=== PATIENT | male | born 1960 | race Caucasian/White ===

== ENCOUNTER 2017-11-11 19:30 | Emergency (ER) | payer SELFPAY ==
[2017-11-11] MEDS ORDERED: Penicillin VK TAB* 250 MG PO ONE (21:16)
--- NOTE | 2017-11-11 21:16 | ED ---
Throat Pain/Nasal Congestion - HPI Summary HPI Summary: Complains of left upper tooth pain and dental abscess 1 week. Patient states he self drained abscess 2 days ago, and swelling and abscess have resolved, but dental pain is increased. Denies fever, sore throat, trouble eating or drinking , N/V, further purulent drainage, gum swelling, ear pain, PETERSON, facial swelling, decreased jaw function or range of motion, SOB. Medical history is none. - History of Current Complaint Chief Complaint: EDDentalPain Time Seen by Provider: 11/11/17 20:58 Hx Obtained From: Patient, Family/Belt Knife Feeder Onset/Duration: Gradual Onset Severity: Moderate - Epiglottits Risk Factors Epiglottis Risk Factors: Negative - Allergies/Home Medications Allergies/Adverse Reactions: Allergies Allergy/AdvReac Type Severity Reaction Status Date / Time Iodine and Iodide Containing Allergy Hives Verified 11/11/17 20:49 Produc shellfish derived Allergy Hives Verified 11/11/17 20:49 Home Medications: Home Medications Gluc Villegas/Chondro Villegas A/Vit C/Mn [Glucosamine Chondroitin] 1 tab PO DAILY 11/11/17 [History Confirmed 11/11/17] PMH/Surg Hx/FS Hx/Imm Hx - Immunization History Date of Tetanus Vaccine: utd Date of Influenza Vaccine: none Infectious Disease History: No Infectious Disease History: Denies: Traveled Outside the [place] in Last 30 Days - Social History Alcohol Use: Rare Substance Use Type: Reports: Marijuana Substance Use Comment - Amount & Last Used: daily Smoking Status (MU): Never Smoked Tobacco Review of Systems Constitutional: Negative Eyes: Negative Positive: Dental Pain Cardiovascular: Negative Respiratory: Negative Gastrointestinal: Negative Genitourinary: Negative Musculoskeletal: Negative Skin: Negative Neurological: Negative Psychological: Normal All Other Systems Reviewed And Are Negative: Yes Physical Exam - Summary Physical Exam Summary: Dental Dayanara, we are left upper molar. Most of tooth missing. No abscess, swelling of gums, purulent drainage., Gums nontender to palpation. Pharynx normal. Uvula midline. No facial swelling. Triage Information Reviewed: Yes Vital Signs On Initial Exam: Initial Vitals Temp Pulse Resp BP Pulse Ox 97.6 F 52 18 108/58 99 11/11/17 19:40 11/11/17 19:40 11/11/17 19:40 11/11/17 19:40 11/11/17 19:40 Vital Signs Reviewed: Yes Appearance: Positive: Well-Appearing Skin: Positive: Warm Head/Face: Positive: Normal Head/Face Inspection Eyes: Positive: Normal ENT: Positive: Normal ENT inspection Dental: Positive: Gross Decay/Caries @. Negative: Percussion Tenderness @, Abscess @, Oropharynx Neck: Positive: Supple Respiratory/Lung Sounds: Positive: Clear to Auscultation Cardiovascular: Positive: Normal Abdomen Description: Positive: Nontender Musculoskeletal: Positive: Normal Neurological: Positive: Normal Psychiatric: Positive: Normal AVPU Assessment: Alert - Dillon Coma Scale Best Eye Response: 4 - Spontaneous Best Motor Response: 6 - Obeys Commands Best Verbal Response: 5 - Oriented Coma Scale Total: 15 Diagnostics - Vital Signs Vital Signs Temp Pulse Resp BP Pulse Ox 11/11/17 19:40 97.6 F 52 18 108/58 99 - Laboratory Lab Statement: Any lab studies that have been ordered have been reviewed, and results considered in the medical decision making process. EENT Course/Dx - Course Course Of Treatment: dental pain with resolved abscess: home with abx, pain med and f/up with dentist - Diagnoses Provider Diagnoses: Pain, dental, Dental caries Discharge - Sign-Out/Discharge Documenting (check all that apply): Discharge/Admit/Transfer - Discharge Plan Condition: Stable Disposition: HOME Prescriptions: Penicillin VK 500 MG TAB(NF) [Penicillin VK 500 mg Tab] 500 mg PO QID 7 Days # 28 tab Tramadol HCl 50 mg PO TID 4 Days #12 tablet MDD 3 Patient Education Materials: Dental Abscess (ED), Toothache (ED) Referrals: No Primary Care Phys,NOPCP [Primary Care Provider] - - Billing Disposition and Condition Condition: STABLE Disposition: HOME
[2017-11-11] MEDS ORDERED: traMADol TAB* 50 MG PO ONE (21:17)
[2017-11-11 21:46] VITALS: BP 110/60
== END 2017-11-11 21:45 | disposition home or self-care (01) ==
LOC: ED 19:30
DX: K08.89 Other specified disorders of teeth and supporting structures (principal); K02.9 Dental caries, unspecified
CPT/HCPCS: 99282; A9270-GY

== ENCOUNTER 2018-11-25 20:56 | Emergency (ER) | payer BC ==
[2018-11-25 21:28] VITALS: BP 117/58
[2018-11-25] MEDS ORDERED: Aspirin 81 mg CHEW TAB* 81 MG TAB.CHEW PO ONE (21:31)
--- NOTE | 2018-11-25 21:31 | UC ---
Dizzy HPI HPI Summary: PATIENT ARRIVES COMPLAINING OF FEELING DIZZY/LIGHTHEADED WITH PAIN IN HIS LEFT ARM AND LEFT ANTERIOR CHEST FOR THE PAST HOUR. STARTED WHILE AT REST. DENIES ANY SHORTNESS OF BREATH, NAUSEA, SWEATS. IN THE UC HE WAS FOUND TO BE BRADYCARDIC WHICH UPON REVIEW OF HIS CHART SEEMS TO BE HIS BASELINE. HAD A SIMILAR EPISODE EARLIER IN THE DAY. - History Of Current Complaint Stated Complaint: ARM SENSATIONS LOW PRESSURE Time Seen by Provider: 11/25/18 21:01 Hx Obtained From: Patient, Family/Warble Saw Operator - Onset/Duration: Sudden Onset, Lasting Hours, Still Present Timing: Constant Severity Initially: Moderate Severity Currently: Moderate Pain Intensity: 4 Pain Scale Used: 0-10 Numeric Character: Lightheaded, Dizzy Aggravating Factor(s): Nothing Alleviating Factor(s): Nothing Associated Signs And Symptoms: Positive: Chest Pain. Negative: Nausea, SOB - Allergies/Home Medications Allergies/Adverse Reactions: Allergies Allergy/AdvReac Type Severity Reaction Status Date / Time Iodine and Iodide Containing Allergy Hives Verified 11/25/18 21:28 Produc shellfish derived Allergy Hives Verified 11/25/18 21:28 PMH/Surg Hx/FS Hx/Imm Hx Previously Healthy: Yes - Family History Known Family History: Positive: None - Social History Alcohol Use: Rare Substance Use Type: Marijuana Substance Use Comment - Amount & Last Used: daily Smoking Status (MU): Never Smoked Tobacco Review of Systems All Other Systems Reviewed And Are Negative: Yes Constitutional: Positive: Negative Skin: Positive: Negative Respiratory: Positive: Negative Cardiovascular: Positive: Chest Pain Gastrointestinal: Positive: Negative Musculoskeletal: Positive: Other: - LEFT ARM PAIN Neurological: Positive: Other - DIZZY Physical Exam Triage Information Reviewed: Yes Appearance: Well-Appearing, No Pain Distress, Well-Nourished Vital Signs Reviewed: Yes Eyes: Positive: Conjunctiva Clear ENT: Positive: Hearing grossly normal Neck: Positive: Supple Respiratory Exam: Normal Cardiovascular: Positive: Bradycardia Abdomen Description: Positive: Nontender, Soft. Negative: Distended, Guarding Bowel Sounds: Positive: Present Musculoskeletal: Positive: No Edema Neurological: Positive: Alert Psychological: Positive: Age Appropriate Behavior Skin: Negative: Rashes Diagnostics - EKG Cardiac Rate: Bradycardia - 50BPM Cardiac Rhythm: Sinus: Normal Ectopy: None ST Segment: Normal Dizzy Course/Dx - Course Course Of Treatment: PATIENT ARRIVES COMPLAINING OF FEELING DIZZY/LIGHTHEADED WITH PAIN IN HIS LEFT ARM AND LEFT ANTERIOR CHEST. DENIES ANY SHORTNESS OF BREATH, NAUSEA, SWEATS. HE WAS FOUND TO BE BRADYCARDIC WHICH UPON REVIEW OF HIS CHART SEEMS TO BE HIS BASELINE. WILL SEND TO ED FOR FURTHER EVALUATION. PT OFFERED TRANSPORT TO THE ED BY AMBULANCE BUT DECLINES. ADVISED THAT BY NOT TRAVELING IN A MONITORED SETTING HE COULD BE RISKING WORSENING OF HIS CONDITION THAT COULD POSE A THREAT TO HIS LIFE, HEALTH AND MEDICAL SAFETY. HE VERBALIZES UNDERSTANDING AND CONTINUES TO DECLINE AMBULANCE TRANSFER. - Differential Dx/Diagnosis Provider Diagnosis: Dizziness, Bradycardia, Chest pain Discharge - Sign-Out/Discharge Documenting (check all that apply): Patient Departure All imaging exams completed and their final reports reviewed: No Studies - Discharge Plan Condition: Stable Disposition: TRANS HIGHER LVL OF CARE FAC Patient Education Materials: Dizziness (ED) Referrals: Agnes Price MD [Primary Care Provider] - If Needed Additional Instructions: GO [facility] [facility] [place] FOR FURTHER EVALUATION. YOU HAVE DECLINED TRANSFER TO THE ED BY AMBULANCE. BE ADVISED THAT BY NOT TRAVELING IN A MONITORED SETTING YOU COULD BE RISKING WORSENING OF YOUR CONDITION THAT COULD POSE A THREAT TO YOUR LIFE, HEALTH AND MEDICAL SAFETY. - Billing Disposition and Condition Condition: STABLE Disposition: Trans Higher Lvl of Care Fac
== END 2018-11-25 21:39 | disposition short-term general hospital (02) ==
LOC: UCEAST 20:56
DX: R42 Dizziness and giddiness (principal); R00.1 Bradycardia, unspecified; R07.89 Other chest pain; M79.602 Pain in left arm; Z88.3 Allergy status to other anti-infective agents; Z91.013 Allergy to seafood
CPT/HCPCS: 99212; A9270-GY; G0463

== ENCOUNTER 2018-11-25 21:54 | Emergency (ER) | payer BC ==
[2018-11-25] MEDS ORDERED: NS 0.9% 1000 ML** 1,000 ML IV ONE (22:23)
--- NOTE | 2018-11-25 22:27 | ED ---
Dizziness - HPI Summary HPI Summary: This patient is a 58 year old M presenting to [facility] with a chief complaint of dizziness since 15:00 today for two hours. Patient describes the dizziness as if he felt like he was going to faint. Patient reports cramping in LLE that has since resolved and pain in LUE since 2 hours ago. Patient denies vomiting, nausea, diaphoresis, CP, and SOB. The patient rates the pain 4/10 in severity. Patient denies having had these symptoms before. He ate and drank water normally today. He does not engage in regular exercise. - History Of Current Complaint Chief Complaint: EDDizziness Stated Complaint: "COMING FROM UC/SHOULDER PAIN/DIZZINESS" PER Time Seen by Provider: 11/25/18 22:15 Hx Obtained From: Patient, Environment Coordinator - , patient only speaks Maltese Timing: Intermittent Episode Lasting - Hours Severity Currently: Mild Character: Dizzy Associated Signs And Symptoms: Positive: Other: - Dizziness, cramp in LLE that has since resolved, and pain in LUE since 2 hours ago. Denies diaphoresis.. Negative: Nausea, Vomiting, Chest Pain, SOB - Allergies/Home Medications Allergies/Adverse Reactions: Allergies Allergy/AdvReac Type Severity Reaction Status Date / Time Iodine and Iodide Containing Allergy Hives Verified 11/25/18 21:28 Produc shellfish derived Allergy Hives Verified 11/25/18 21:28 PMH/Surg Hx/FS Hx/Imm Hx Cardiovascular History: Reports: Other Cardiovascular Problems/Disorders - Varicose veins GI History: Reports: Other GI Disorders - Hernia Musculoskeletal History: Reports: Hx Arthritis - Surgical History Surgery Procedure, Year, and Place: HERNIA REPAIR, [place] - Immunization History Date of Tetanus Vaccine: utd Date of Influenza Vaccine: none Infectious Disease History: No Infectious Disease History: Reports: Hx Hepatitis - HX HEP A Denies: Traveled Outside the [place] in Last 30 Days - Family History Known Family History: Negative: Hypertension, Diabetes - Social History Alcohol Use: Rare Substance Use Type: Reports: Marijuana Substance Use Comment - Amount & Last Used: daily Smoking Status (MU): Never Smoked Tobacco Review of Systems Negative: Skin Diaphoresis Negative: Chest Pain Negative: Shortness Of Breath Negative: Vomiting, Nausea Positive: Other - cramp in LLE that has since resolved and pain in LUE since 2 hours ago Neurological: Other - Dizziness All Other Systems Reviewed And Are Negative: Yes Physical Exam - Summary Physical Exam Summary: VITAL SIGNS: Reviewed. GENERAL: Patient is a well-developed and nourished MALE who is lying comfortable in the stretcher. Patient is not in any acute respiratory distress. HEAD AND FACE: No signs of trauma. No ecchymosis, hematomas or skull depressions. No sinus tenderness. EYES: PERRLA, EOMI x 2, No injected conjunctiva, no nystagmus. EARS: Hearing grossly intact. Ear canals and tympanic membranes are within normal limits. MOUTH: Oropharynx within normal limits. NECK: Supple, trachea is midline, no adenopathy, no JVD, no carotid bruit, no c- spine tenderness, neck with full ROM CHEST: Symmetric, no tenderness at palpation LUNGS: Clear to auscultation bilaterally. No wheezing or crackles. CVS: Regular rate, mild bradycardia, S1 and S2 present, no murmurs or gallops appreciated. ABDOMEN: Soft, non-tender. No signs of distention. No rebound no guarding, and no masses palpated. Bowel sounds are normal. EXTREMITIES: FROM in all major joints, no edema, no cyanosis or clubbing. NEURO: Alert and oriented x 3. No acute neurological deficits. Speech is normal and follows commands. SKIN: Dry and warm Triage Information Reviewed: Yes Vital Signs On Initial Exam: Initial Vitals Temp Pulse Resp BP Pulse Ox 98 F 43 16 114/55 96 11/25/18 21:57 11/25/18 21:57 11/25/18 21:57 11/25/18 21:57 11/25/18 21:57 Vital Signs Reviewed: Yes Diagnostics - Vital Signs Vital Signs Temp Pulse Resp BP Pulse Ox 11/25/18 21:57 98 F 43 16 114/55 96 - Laboratory Result Diagrams: 11/25/18 22:54 11/25/18 22:54 Lab Statement: Any lab studies that have been ordered have been reviewed, and results considered in the medical decision making process. - EKG 00:00 Cardiac Rate: Bradycardia - 47 BPM EKG Rhythm: Sinus Rhythm Summary of EKG Findings: Normal axis. Normal interval. No ischemic changes. Dizzy Course/Dx - Course Course Of Treatment: This patient is a 58 year old M presenting to [facility] with a chief complaint of dizziness since 15:00 today for two hours. EKG showed bradycardia and sinus rhythm. He will be d/c with dx of atypical chest pain and dizziness. Pt was given instructions to follow up with Dr. Joy, cardiology , on 11/27/18. - Diagnoses Provider Diagnoses: Atypical chest pain, Dizziness Discharge - Sign-Out/Discharge Documenting (check all that apply): Patient Departure - D/C home Patient Received Moderate/Deep Sedation with Procedure: No - Discharge Plan Condition: Stable Disposition: HOME Patient Education Materials: Chest Pain (ED), Dizziness (ED) Referrals: Agnes Price MD [Primary Care Provider] - 3 Days Giuliana Joy MD [Medical Doctor] - 1 Day Additional Instructions: Follow up with Dr. Joy, cardiology, on Tuesday11/27/18. Follow up with your primary care provider in three days. PLEASE RETURN TO THE ED IMMEDIATELY FOR WORSENING OR CONCERNING SYMPTOMS. - Billing Disposition and Condition Condition: STABLE Disposition: Home - Attestation Statements Document Initiated by Scribe: Yes Documenting Scribe: Nic Arreola Provider For Whom Scribe is Documenting (Include Credential): Simón Church MD Scribe Attestation: Nic Burrows, scribed for Simón Church MD on 11/26/18 at 0603. Scribe Documentation Reviewed: Yes Provider Attestation: The documentation as recorded by the Nic larkin accurately reflects the service I personally performed and the decisions made by Daniela hook MD Status of Scribe Document: Viewed
[2018-11-25] MEDS ORDERED: Aspirin 81 mg CHEW TAB* 81 MG TAB.CHEW PO ONE (22:41)
[2018-11-25 23:02] LABS: ABS Eosinophils 0.5 10^3/ul (0-0.6); ABS Lymphocytes 2.1 10^3/ul (1.0-4.8); ABS Monocytes 0.5 10^3/ul (0-0.8); ABS Neutrophils 3.9 10^3/ul (1.5-7.7); Eosinophil % 6.8 %; Hematocrit 40 % (42-52); Hemoglobin 13.5 g/dL (14.0-18.0); Lymphocyte % 29.4 %; Mean Corpuscular HGB Conc 34 g/dL (31-36); Mean Corpuscular Hemoglobin 30 pg (27-31); Mean Corpuscular Volume 90 fL (80-94); Mean Platelet Volume 7.5 fL (7.4-10.4); Nucleated Red Blood Cells % 0.1; Platelet Count 227 10^3/uL (150-450); Red Blood Count 4.42 10^6 /uL (4.18-5.48); Red Cell Distribution Width 13 % (10.5-15)
[2018-11-25 23:11] LABS: Activated Partial Thrombo Time 39.1 seconds (26.0-36.3); INR 1.01 (0.82-1.09)
[2018-11-25 23:18] LABS: Albumin 4.2 g/dL (3.2-5.2); Albumin/Globulin Ratio 1.8 (1-3); Calcium 9.1 mg/dL (8.6-10.3); EGFR African American 129.4 (>60); Globulin 2.4 g/dL (2-4); Magnesium 2.2 mg/dL (1.9-2.7); Potassium 3.9 mmol/L (3.5-5.0); Total Bilirubin 0.3 mg/dL (0.2-1.0); Total Protein 6.6 g/dL (6.4-8.9)
[2018-11-25 23:21] LABS: Troponin I 0.01 ng/mL (<0.04)
[2018-11-25 23:48] LABS: TSH (Thyroid Stimulating Horm) 8.21 mcIU/mL (0.34-5.60)
[2018-11-26 00:56] LABS: Urine Appearance Clear; Urine Bilirubin Negative (Negative); Urine Blood Negative (Negative); Urine Color Yellow; Urine Glucose Negative (Negative); Urine Ketones Negative (Negative); Urine Nitrite Negative (Negative); Urine Protein Negative (Negative); Urine Specific Gravity 1.019 (1.010-1.030); Urine Urobilinogen Negative (Negative)
[2018-11-26 02:33] VITALS: BP 111/70
== END 2018-11-26 02:35 | disposition home or self-care (01) ==
LOC: ED 21:54
DX: R42 Dizziness and giddiness (principal); R07.89 Other chest pain
CPT/HCPCS: 36415; 80053; 81003; 83735; 84443; 84484; 85025; 85610; 85730; 93005; 96360; 99284; A9270-GY